=== PATIENT | female | born 1945 | race Caucasian/White ===

== ENCOUNTER → 2017-09-07 10:49 | Outpatient (CLI) | payer MEDICARE, BC, SELFPAY ==
--- NOTE | 2017-09-07 10:53 | MM_ITS ---
MM Dig screening mamm BI w/CAD CAD Screening COMPARISON: Digital mammograms 08/09/2016 and additional views right breast 08/30/2016 INDICATION: There is a history of breast cancer patient's mother diagnosed in her 50s and in 4 maternal aunts diagnosed in her 40s and 50s TECHNIQUE: Standard CC and MLO images were obtained. R2 CAD reviewed. FINDINGS: The breasts are composed primarily of fat with minimal scattered fibroglandular densities throughout each breast. Stable asymmetric density upper-outer quadrant right breast. There is arterial calcification in each breast. There is no suspicious lesion and there are no suspicious microcalcifications. IMPRESSION: Mild to moderate breast density with suspicious lesion seen recommend yearly follow-up BI-RADS Category: 2 Benign Finding(s) RECOMMENDED FOLLOW-UP: 1YR - 1 YEAR FOLLOW-UP (A letter has been sent to the patient regarding results of the study.)
== END ==
PROVIDERS: Family Provider Internal Medicine; PCP Obstetrics & Gynecology; Visit Provider Obstetrics & Gynecology
DX: Z12.31 Encounter for screening mammogram for malignant neoplasm of breast (principal)
CPT/HCPCS: 77067

== ENCOUNTER → 2018-09-12 09:43 | Outpatient (CLI) | payer MEDICARE, BC, SELFPAY ==
--- NOTE | 2018-09-12 09:47 | MM_ITS ---
MM Dig screening mamm BI w/CAD CAD Screening COMPARISON: Digital mammograms with CAD 09/07/2017 and 08/09/2016 INDICATION: There is a history of breast cancer patient's mother diagnosed in her 50s and 4 maternal aunts diagnosed in her 40s and 50s TECHNIQUE: Standard CC and MLO images were obtained. R2 CAD reviewed. FINDINGS: Scattered fibroglandular densities are seen throughout both breasts. There is minimal arterial calcination in each breast. There is no suspicious lesion in either breast and no suspicious microcalcifications. IMPRESSION: Stable exam no suspicious lesion seen BI-RADS Category: 2 Benign Finding(s) RECOMMENDED FOLLOW-UP: 1YR - 1 YEAR FOLLOW-UP (A letter has been sent to the patient regarding results of the study.)
== END ==
PROVIDERS: PCP Internal Medicine; Visit Provider Obstetrics & Gynecology
DX: Z12.31 Encounter for screening mammogram for malignant neoplasm of breast (principal)
CPT/HCPCS: 77067

== ENCOUNTER → 2018-10-22 11:25 | Outpatient (POV) | payer MEDICARE, BC, SELFPAY | PROVIDERS: Visit Provider Dermatology | DX: Z00.00 Encounter for general adult medical examination without abnormal findings (principal) ==

== ENCOUNTER → 2019-09-15 10:58 | Outpatient (CLI) | payer MEDICARE, BC, SELFPAY ==
--- NOTE | 2019-09-15 10:58 | MM_ITS ---
PROCEDURE: MM DIG SCREENING MAMM BI W/CAD CLINICAL INDICATION: screening There is no current history should available but previous studies show history of breast cancer patient's mother diagnosed in her 50s and 4 paternal aunts diagnosed in her 40s and 50s COMPARISON: [id number] DIG MAMM-DX UNI A/VW-RT W/CAD from 08/30/2016 [facility] MM Dig screening mamm BI w/CAD from 09/07/2017 [facility] MM Dig screening mamm BI w/CAD from 09/12/2018 TECHNIQUE: Standard CC and MLO images and 3D Tomosynthesis was obtained. R2 CAD reviewed. FINDINGS: Mild to moderate scattered fibroglandular densities are seen throughout both breasts. There is arterial calcification in each breast as noted previously. Lázaro images were review showing no persistent or suspicious abnormality in either breast. There are no suspicious microcalcifications. IMPRESSION: Fibrofatty parenchyma with no suspicious lesions seen BI-RAD Category: 2 Benign Finding(s) FOLLOW-UP: 1YR 1 Year Follow-up (A letter has been sent to the patient regarding results of the study.) Dictated by: Dr. Alex Manning MD 09/24/2019 14:[address] Alex Manning MD in [place] 09/24/2019 14:28
== END ==
PROVIDERS: PCP Internal Medicine; Visit Provider Obstetrics & Gynecology
DX: Z12.31 Encounter for screening mammogram for malignant neoplasm of breast (principal)
CPT/HCPCS: 77063; 77067

== ENCOUNTER → 2020-05-31 09:25 | Outpatient (CLI) | payer MEDICARE, BC, SELFPAY ==
[2020-05-31 11:02] LABS: Coronavirus 19 IgG Antibody Negative (Negative); Coronavirus 19 IgM Antibody Negative (Negative)
== END ==
PROVIDERS: Visit Provider Ophthalmology
DX: Z01.89 Encounter for other specified special examinations (principal); H26.9 Unspecified cataract
CPT/HCPCS: 36415; 86328

== ENCOUNTER 2020-06-01 09:59 | Day surgery (SDC) | payer MEDICARE, BC, SELFPAY ==
[2020-06-01 10:38] VITALS: BP 158/61; PULSE 47; RESP 18; TEMP 36.2; O2SAT 98; BMI 23.8
[2020-06-01 11:52] VITALS: BP 182/77; PULSE 44; RESP 16; O2SAT 100
[2020-06-01 11:57] VITALS: BP 184/72; PULSE 45; RESP 16; O2SAT 100
[2020-06-01 12:02] VITALS: BP 155/65; PULSE 45; RESP 16; O2SAT 100
[2020-06-01 12:07] VITALS: BP 153/68; PULSE 45; RESP 16; O2SAT 100
[2020-06-01 12:35] VITALS: BP 182/77; PULSE 49; RESP 18; TEMP 36.2; O2SAT 97
== END 2020-06-01 12:35 | disposition home or self-care (01) ==
LOC: OR 10:03
PROVIDERS: PCP Nurse Practitioner; Visit Provider Ophthalmology
DX: H25.813 Combined forms of age-related cataract, bilateral (principal); H53.8 Other visual disturbances; H02.839 Dermatochalasis of unspecified eye, unspecified eyelid; H91.90 Unspecified hearing loss, unspecified ear; Z79.82 Long term (current) use of aspirin; Z79.899 Other long term (current) drug therapy; Z88.2 Allergy status to sulfonamides
CPT/HCPCS: 66984; V2632

== ENCOUNTER → 2020-06-14 10:48 | Outpatient (CLI) | payer MEDICARE, BC, SELFPAY ==
[2020-06-14 13:23] LABS: Coronavirus 19 IgG Antibody Negative (Negative); Coronavirus 19 IgM Antibody Negative (Negative)
== END ==
PROVIDERS: Visit Provider Ophthalmology
DX: Z01.818 Encounter for other preprocedural examination (principal); H26.9 Unspecified cataract
CPT/HCPCS: 36415; 86328

== ENCOUNTER 2020-06-15 08:23 | Day surgery (SDC) | payer MEDICARE, BC, SELFPAY ==
[2020-06-08 13:16] VITALS: BMI 21.9
[2020-06-15 09:16] VITALS: BP 180/82; PULSE 60; RESP 18; TEMP 36.2; O2SAT 98
[2020-06-15 10:36] VITALS: BP 185/76; PULSE 53; RESP 18; O2SAT 100
[2020-06-15 10:41] VITALS: BP 151/65; PULSE 45; RESP 18; O2SAT 100
[2020-06-15 10:46] VITALS: BP 138/63; PULSE 46; RESP 16; O2SAT 98
[2020-06-15 10:51] VITALS: BP 165/55; PULSE 48; RESP 16; O2SAT 98
[2020-06-15 10:54] VITALS: BP 161/82; PULSE 51; RESP 18; TEMP 36.4; O2SAT 99
== END 2020-06-15 11:13 | disposition home or self-care (01) ==
LOC: OR 08:25
PROVIDERS: PCP Nurse Practitioner; Visit Provider Ophthalmology
DX: H25.813 Combined forms of age-related cataract, bilateral (principal); H02.839 Dermatochalasis of unspecified eye, unspecified eyelid; H57.09 Other anomalies of pupillary function; Z79.899 Other long term (current) drug therapy; Z79.82 Long term (current) use of aspirin; Z91.041 Radiographic dye allergy status; Z91.040 Latex allergy status
CPT/HCPCS: 66982; V2632

== ENCOUNTER 2020-06-17 19:26 | Observation (INO) | payer MEDICARE, BC, SELFPAY ==
[2020-06-17 19:28] VITALS: BP 170/70; PULSE 53; RESP 18; TEMP 37.1; O2SAT 100; BMI 21.9
[2020-06-17 19:58] LABS: Microscopic, Urine URINE MICROSCOPIC (MICROSCOPIC)
[2020-06-17 19:59] LABS: Appearance,Urine CLEAR (Clear); Bilirubin,Urine Negative (Negative); Blood, Urine Negative (Negative); Color,Urine YELLOW (Yellow); Glucose,Urine (UA) Negative (Negative); Ketones,Urine Negative (Negative); Leukocyte Esterase,Urine 2+ (Negative); Nitrate,Urine Negative (Negative); Protein,Urine Negative (Negative); Urobilinogen,Urine 0.2 EU/dl (0.2)
--- NOTE | 2020-06-17 20:16 | HMH.EDUROGF ---
ED Disposition Clinical Impression: Acute delirium, Renal insufficiency Urinary tract infection Qualifiers: Urinary tract infection type: site unspecified Hematuria presence: without hematuria Qualified Code(s): N39.0 - Urinary tract infection, site not specified Dementia Qualifiers: Dementia type: unspecified type Dementia behavioral disturbance: without behavioral disturbance Qualified Code(s): F03.90 - Unspecified dementia without behavioral disturbance Disposition: Admitted as Observation Condition on Discharge: Good Referrals: Sam Kay [Primary Care Provider] - - Critical Care Critical Care Time: No Attestation: On 06/17/20, the high probability of a clinically significant, sudden or life threatening deterioration of the following system(s) required my full and direct attention, intervention and personal management. The time I documented below is in addition to time spent performing reported procedures but includes the following listed in this critical care notation. Medical Decision Making - Medical Records Medical records reviewed: Yes: I reviewed the patient's medical records. - Bharathi Inquiry Pt receiving controlled substance: No Vital Signs: 06/17/20 19:28 06/17/20 20:19 Temperature 98.7 F Temperature Source Oral Pulse Rate [Right Radial] 53 L 56 L Respiratory Rate 18 18 Blood Pressure [Left Arm] 170/70 H 141/69 H Blood Pressure Mean [Left Arm] 103 93 Blood Pressure Source [Left Arm] Automatic Cuff Automatic Cuff Blood Pressure Position [Left Arm] Sitting Sitting 02 Sat by Pulse Oximetry 100 98 Oxygen Delivery Method Room Air Room Air - Lab Data Lab results reviewed: Yes: I reviewed the patient's lab results. Lab Results 06/17/20 19:34: Urine Color Yellow, Urine Appearance Clear, Urine pH 6.0, Ur Specific [place] 1.020, Urine Protein Negative, Urine Glucose (UA) Negative, Urine Ketones Negative, Urine Blood Negative, Urine Nitrate Negative, Urine Bilirubin Negative, Urine Urobilinogen 0.2, Ur Leukocyte Esterase 2+ A, Urine RBC 3-5, Urine WBC 10-20, Ur Squamous Epith Cells 10-20, Urine Bacteria 2+, Urine Mucus 3+ 06/17/20 20:10: WBC 8.4, RBC 4.64, Hgb 13.9, Hct 43.0, MCV 92.7, MCH 29.9, MCHC 32.3, RDW 14.1, Plt Count 187, MPV 9.8, Neut % (Auto) 57.7, Lymph % (Auto) 33.5, [place] % (Auto) 6.3, Eos % (Auto) 1.9, Baso % (Auto) 0.5, Neut # (Auto) 4.9, Lymph # (Auto) 2.8, [place] # (Auto) 0.5, Eos # (Auto) 0.2, Baso # (Auto) 0.0 06/17/20 20:10: Sodium 143, Carbon Dioxide 33 H, BUN 14, Creatinine 1.20 H, Estimated Creat Clear 35, Estimated GFR 44 L, Est GFR ( Amer) 53 L, Glucose 90, Calcium 9.3, Total Bilirubin 0.6, AST 26, ALT 7 L, Alkaline Phosphatase 111, Total Protein 6.9, Albumin 4.1, Globulin 2.8, Albumin/Globulin Ratio 1.5 Result diagrams: 06/17/20 20:10 06/17/20 20:10 Orders (Tests/Meds): ED MEDICATIONS Generic Name Dose Route Start Last Admin Trade Name Freq PRN Reason Stop Dose Admin Sodium Chloride 1,000 mls @ 999 mls/hr 06/17/20 20:15 06/17/20 20:18 Sod Chlor 0.9% 1000ml Bag IV 06/17/20 21:15 999 mls/hr .Q1H1M HEMALATHA Administration Ceftriaxone Sodium 1 gm/ 50 mls @ 100 mls/hr 06/17/20 20:45 06/17/20 20:49 Sodium Chloride IV 07/01/20 20:44 100 mls/hr Q24H HEMALATHA Administration Protocol ORDERS Category Date Time Status Comprehensive Metabolic Panel Stat Lab 06/17/20 20:10 Results Covid-19 IgG/IgM ([facility]) Stat Lab 06/17/20 20:10 Received Urine Culture Stat Micro 06/17/20 19:34 Received Female Urogenital HPI - General Chief complaint: Urogenital-Female Stated complaint: confusion, pre dementia patient Time Seen by Provider: 06/17/20 20:00 Mode of Arrival: Wheelchair Source of Information: Patient, Relative, Medical Record Limitations: No Limitations Description of Symptoms (Recalled from ER Triage Doc. by RN): Son of pt provided hx. He states pt has been talking out of her mind' and stumbling around since this afternoon. He stat
[2020-06-17 20:19] VITALS: BP 141/69; PULSE 56; RESP 18; O2SAT 98
[2020-06-17 20:27] LABS: Basophils % 0.5 % (0.1-2.0); Eosinophils # 0.2 K/mm3 (0.0-0.4); Eosinophils % 1.9 % (0.1-12.0); Hemoglobin 13.9 g/dL (12.2-16.2); Lymphocytes # 2.8 K/mm3 (0.7-4.5); Lymphocytes % 33.5 % (10-50); Mean Corpuscular HGB Conc 32.3 g/dL (31.8-35.4); Mean Corpuscular Hemoglobin 29.9 pg (27.0-31.2); Mean Corpuscular Volume 92.7 fl (81-99); Mean Platelet Volume 9.8 fl (7.4-10.4); Monocytes # 0.5 K/mm3 (0.1-1.0); Monocytes % 6.3 % (1.7-9.3); Neutrophils # 4.9 K/mm3 (1.8-7.8); Neutrophils % 57.7 % (37.0-80.0); Platelet Count 187 K/mm3 (142-424); Red Blood Count 4.64 M/mm3 (4.20-5.40); Red Cell Distribution Width 14.1 % (11.5-17.5); White Blood Count 8.4 K/mm3 (4.8-10.8)
[2020-06-17 20:30] LABS: Sodium 143 mmol/L (136-145)
[2020-06-17 20:32] LABS: Alanine Aminotransferase 7 U/L (12-78); Aspartate Amino Transferase 26 U/L (14-36); Blood Urea Nitrogen 14 mg/dl (7-17); Creatinine Clearance Estimated 35 mL/min (50-200); Estimated Glomerular Filt Rate 44 ml/min (>60); GFR (African American) 53 ML/MIN (>60)
[2020-06-17 20:33] LABS: Albumin Level 4.1 g/dl (3.5-5.0); Albumin/Globulin Ratio 1.5 (1.1-1.8); Alkaline Phosphatase 111 U/L (38-126); Bilirubin,Total 0.6 mg/dl (0.2-1.3); Calcium 9.3 mg/dl (8.4-10.2); Carbon Dioxide 33 mmol/L (22.0-30.0); Globulin 2.8 g/dL (1.3-3.2); Glucose 90 mg/dl (74-100); Total Protein,Serum 6.9 g/dl (6.3-8.2)
[2020-06-17 20:35] LABS: Bacteria,Urine 2+ /lpf; Mucus,Urine 3+ /lpf
[2020-06-17 21:39] LABS: Coronavirus 19 IgG Antibody Negative (Negative); Coronavirus 19 IgM Antibody Negative (Negative)
[2020-06-17 21:42] LABS: Anion Gap 7.3 mEq/L (5-15); Chloride 107 mmol/L (98-107); Potassium 4.3 mmoL/L (3.5-5.1)
[2020-06-17 22:00] VITALS: BP 180/66; PULSE 52; RESP 18; TEMP 36.9; O2SAT 99
[2020-06-17 22:08] VITALS: BP 159/69; PULSE 45; RESP 16; TEMP 36.5; O2SAT 99; BMI 24.0
--- NOTE | 2020-06-17 22:08 | PC.NURSE ---
patient up to floor via wheelchair per RN.
[2020-06-17 22:14] LABS: T4 (Thyroxine) 7.8 ug/dl (5.53-11.0)
--- NOTE | 2020-06-18 03:09 | PC.NURSE ---
Pt able to state name,birthday, and year. lungs CTA. pt denies any pain or SOA. pt ambulates to BR x1. bed alarm activated. pt has rested quietly this shift
[2020-06-18 03:43] VITALS: BP 151/71; PULSE 47; RESP 14; TEMP 36.4; O2SAT 96
[2020-06-18 05:00] VITALS: BMI 24.0
[2020-06-18 07:15] LABS: Basophils % 0.4 % (0.1-2.0); Eosinophils # 0.1 K/mm3 (0.0-0.4); Hematocrit 38.5 % (37.0-47.0); Lymphocytes # 2.1 K/mm3 (0.7-4.5); Lymphocytes % 31.6 % (10-50); Mean Corpuscular HGB Conc 31.8 g/dL (31.8-35.4); Mean Corpuscular Hemoglobin 29.5 pg (27.0-31.2); Mean Corpuscular Volume 92.6 fl (81-99); Mean Platelet Volume 9.8 fl (7.4-10.4); Monocytes # 0.4 K/mm3 (0.1-1.0); Monocytes % 6.4 % (1.7-9.3); Neutrophils % 59.6 % (37.0-80.0); Platelet Count 156 K/mm3 (142-424); Red Blood Count 4.16 M/mm3 (4.20-5.40); Red Cell Distribution Width 14.2 % (11.5-17.5); White Blood Count 6.7 K/mm3 (4.8-10.8)
[2020-06-18 07:19] LABS: Chloride 108 mmol/L (98-107)
[2020-06-18 07:20] LABS: Sodium 142 mmol/L (136-145)
[2020-06-18 07:23] LABS: Blood Urea Nitrogen 11 mg/dl (7-17); Calcium 8.6 mg/dl (8.4-10.2); Carbon Dioxide 28 mmol/L (22.0-30.0); Creatinine Clearance Estimated 46 mL/min (50-200); Estimated Glomerular Filt Rate 54 ml/min (>60); GFR (African American) 65 ML/MIN (>60); Glucose 80 mg/dl (74-100)
--- NOTE | 2020-06-18 07:48 | P.CONPHA_ITS ---
[facility] Pharmacy VTE Monitoring - Patient Demographics Admission date: 06/18/20 Report Date: 06/18/20 Time: 07:48 Allergies/Adverse Reactions: Patient Allergies latex Allergy (Intermediate, Verified 06/17/20 22:23) I-RASH Iodinated Contrast Media Allergy (Unknown, Verified 06/17/20 22:23) Unknown allergy reaction Height: 1.57 m Weight: 59.33 kg Patient Problems: Current Active Problems Urinary tract infection (Acute) Acute delirium (Acute) Renal insufficiency (Acute) Dementia (Acute) - VTE Risk Labs: VTE Related Lab Results Hgb 13.9 g/dL (12.2-16.2) 06/17/20 20:10 Hct 38.5 % (37.0-47.0) 06/18/20 06:44 Plt Count 156 K/mm3 (142-424) 06/18/20 06:44 BUN 14 mg/dl (7-17) 06/17/20 20:10 Creatinine 1.20 mg/dl (0.52-1.04) H 06/17/20 20:10 Estimated Creat Clear 35 mL/min (50-200) 06/17/20 20:10 Clinical Trial Participant: No - Prophylaxis VTE Prophylaxis Ordered?: Yes Types of VTE Prophylaxis: TEDS Knee High
[2020-06-18 07:56] LABS: Hemoglobin 12.4 g/dL (12.2-16.2)
[2020-06-18 08:00] VITALS: BP 140/71; PULSE 56; RESP 16; TEMP 36.6; O2SAT 100
--- NOTE | 2020-06-18 09:42 | HMH.HP ---
*Admission Date: 06/18/20 [facility] History Medical History: Reports:: Hypertension Denies:: Cancer, Diabetes Mellitus Type 1, Diabetes Mellitus Type 2, Internal Pacemaker, MRSA, Seizures *Have you ever received a pneumonia vaccine?: Yes (within last 5 years) *Have you received a flu vaccine this season?: No Other Medical History: Reports: Arthritis, Cataracts (both eyes done with last month), Other Other Surgeries: Yes: Appendectomy, Hysterectomy-Total. No: Pacemaker Amputation: No Fractures: No - *Social History Smoking Status: Never smoker Alcohol Intake: never Substance Use Type: denies use *Occupational Status:: retired Housing: house Household Members: none *Travel in the last 8 weeks: None Family Hx:: No significant family history Review of Systems - *Neurologic Reports confusion, Reports weakness, Denies localized weakness, Denies headache(s) Meds Home Medications Medication Instructions Recorded Confirmed Type atorvastatin 20 mg tablet 20 mg PO DAILY 05/09/18 06/17/20 History celecoxib 200 mg capsule 200 mg PO DAILY 05/09/18 06/17/20 History dicyclomine 10 mg capsule 10 mg PO QID 05/09/18 06/17/20 History enalapril maleate 10 mg tablet 10 mg PO DAILY 05/09/18 06/17/20 History lorazepam 0.5 mg tablet 0.5 mg PO HS 05/09/18 06/17/20 History aspirin 81 mg tablet,delayed 81 mg PO DAILY 08/06/18 06/17/20 History release fexofenadine 180 mg tablet 180 mg PO DAILY PRN 08/06/18 06/17/20 History naproxen sodium 220 mg tablet 220 mg PO BID PRN 08/06/18 06/17/20 History pentosan polysulfate sodium 100 mg 100 mg PO TID 08/06/18 06/17/20 History capsule Memantine HCl [Memantine 10mg 10 mg PO BID 06/17/20 06/17/20 History Tablet] nadoloL [Nadolol] 40 mg PO DAILY 06/17/20 06/17/20 History Donepezil HCl [Aricept 10mg 10 mg PO HS 06/18/20 06/18/20 History tablet] Ergocalciferol (Vitamin D2) 50,000 unit PO WEEKLY 06/18/20 06/18/20 History [Drisdol 50,000 units (1.25mg) capsule] Fluoxetine HCl [Prozac 10mg 10 mg PO DAILY 06/18/20 06/18/20 History Capsule] Allergies Allergy/AdvReac Type Severity Reaction Status Date / Time latex Allergy Intermediate I-RASH Verified 06/17/20 22:23 Iodinated Contrast Media Allergy Unknown Unknown Verified 06/17/20 22:23 allergy reaction Exam Vital signs and Labs for Last 24 Hours: Temp Pulse Resp BP Pulse Ox 97.8 F 56 L 16 140/71 100 06/18/20 08:00 06/18/20 08:00 06/18/20 08:00 06/18/20 08:00 06/18/20 08:00 Laboratory Results - last 24 hr 06/17/20 19:34: Urine Color Yellow, Urine Appearance Clear, Urine pH 6.0, Ur Specific [place] 1.020, Urine Protein Negative, Urine Glucose (UA) Negative, Urine Ketones Negative, Urine Blood Negative, Urine Nitrate Negative, Urine Bilirubin Negative, Urine Urobilinogen 0.2, Ur Leukocyte Esterase 2+ A, Urine RBC 3-5, Urine WBC 10-20, Ur Squamous Epith Cells 10-20, Urine Bacteria 2+, Urine Mucus 3+ 06/17/20 20:10: WBC 8.4, RBC 4.64, Hgb 13.9, Hct 43.0, MCV 92.7, MCH 29.9, MCHC 32.3, RDW 14.1, Plt Count 187, MPV 9.8, Neut % (Auto) 57.7, Lymph % (Auto) 33.5, [place] % (Auto) 6.3, Eos % (Auto) 1.9, Baso % (Auto) 0.5, Neut # (Auto) 4.9, Lymph # (Auto) 2.8, [place] # (Auto) 0.5, Eos # (Auto) 0.2, Baso # (Auto) 0.0 06/17/20 20:10: Sodium 143, Potassium 4.3, Chloride 107, Carbon Dioxide 33 H, Anion Gap 7.3, BUN 14, Creatinine 1.20 H, Estimated Creat Clear 35, Estimated GFR 44 L, Est GFR ( Amer) 53 L, Glucose 90, Calcium 9.3, Total Bilirubin 0.6, AST 26, ALT 7 L, Alkaline Phosphatase 111, Total Protein 6.9, Albumin 4.1, Globulin 2.8, Albumin/Globulin Ratio 1.5 06/17/20 20:10: SARS-CoV-2 IgG Ab (Rapid) Negative, SARS-CoV-2 IgM Ab (Rapid) Negative 06/17/20 20:10: TSH 3.70, Thyroxine (T4) 7.8 06/18/20 06:44: WBC 6.7, RBC 4.16 L, Hgb 12.4 D, Hct 38.5, MCV 92.6, MCH 29.5, MCHC 31.8, RDW 14.2, Plt Count 156, MPV 9.8, Neut % (Auto) 59.6, Lymph % (Auto) 31.6, [place] % (Auto) 6.4, Eos % (Auto) 2.0, Baso % (Auto) 0.4, Neut #
--- NOTE | 2020-06-18 10:09 | HMH.OTEV ---
OT Inpatient Evaluation Rehab OT IP Evaluation Start: 06/17/20 22:32 Freq: ONCE Status: Complete Protocol: Document 06/18/20 09:57 RADHA (Rec: 06/18/20 10:09 RADHA [id number]) Rehab OT IP Assessment Subjective History 75 year old female admitted on 06/17/20 to ED at [facility] for acute delirium and renal insufficiency. Patient poor historian and unable to provide accurate and consistent PLOF hx with ADLs and fx'l mobility. Per counter caser, Patient lived alone and independent with ADLs and fx'l mobility. Family lives close by and checks on her multiple times a day. Subjective I live in [facility] with my son close by. Objective Patient Orientation Person Upper Extremity Gross ROM WNL Bed Mobility bed mobility - supine/sit,bed mobility - rolling Assist Level Independent Transfer Training Sit/Stand Transfer,Sit/Stand/ Step Transfer Assist Level Contact Guard/Hand Hold Lower Body Dressing Ability Independent Rehab OT IP prob,goals,plan Problems Date of Evaluation: 06/18/20 OT IP Problems Transfers,Balance,Safety Rehab Potential Rehab Potential Good Equipment Needs Assistive Devices Rolling / Wheeled Walker Plan OT intervention Plan Transfers,Balance,Safety, Therapeutic Exercise OT Plan Frequency Daily Duration LOS Discharge Goals Sit to Stand Chair Transfer Ability Supervision/Stand by Chair Transfer Ability Supervision/Stand by Chair Transfer Technique Stand Step Pivot Chair Transfer Assistive Devices Rolling Walker Discharge Plan OT Discharge Plan Recommend HH if return home with family to assist. Eval Complexity Eval Charge Codes 96963 - Low Complexity G Codes G -code Required No PHYSICIAN CERTIFICATION: I certify the specified therapy services for Adrienne Low are required, authorized, and reviewed every 30 days.
--- NOTE | 2020-06-18 11:19 | HMH.PTEV ---
Physical Therapy Evaluation Rehab PT IP Evaluation Start: 06/17/20 22:32 Freq: ONCE Status: Active Protocol: Document 06/18/20 11:17 PHORVICENTE (Rec: 06/18/20 11:19 PHORNE [id number]) Subjective/History History History 75 yowf adm to [facility] with possible UTI and AMS. SHe reports she lives alone independent with all ADLs and mobility at baseline. Subjective Subjective Pt with no c/o this am. Rehab PT IP Eval Objective Appearance Patient Behavior Appropriate Patient Orientation Person,Place,Time Difficulty following instructions none Speech Pattern Clear Ambulation Patient Able to Ambulate Yes Ambulation Observation IP General Gait Pattern Observation No Deviations/Normal Ambulation Distance (feet) 50 Ambulation Assistive Device None Ambulation Ability Independent Balance Ability to Arise Able, w/o using arms Sitting Balance Steady, safe Standing Balance Narrow stance w/o support Dynamic Sitting Balance Ability Normal Dynamic Standing Balance Ability Good Transfers Bed Transfer Ability Independent Chair Transfer Ability Independent Sit to Stand Bed Transfer Ability Independent Sit to Stand Chair Transfer Ability Independent ROM All Extremities PT ROM Status WFL MMT All Extremities PT MMT WFL Rehab PT IP prob,goals,plan Problems Date of Evaluation: 06/18/20 Discharge Plan PT Discharge Plan Pt appears to be at baseline for all mobility at this time and is appropriate to return home once medically stable. Home Health therapy recommended. G -code Required No Eval Complexity Eval Charge Codes 41981 - Moderate Complexity PHYSICIAN CERTIFICATION: I certify the specified therapy services for Adrienne Low are required, authorized, and reviewed every 30 days.
--- NOTE | 2020-06-18 12:18 | HMH.HPDC ---
General - General Admission date:: 06/17/20 Discharge date: 06/18/20 *Admission Date: 06/18/20 *Chief complaint: uti *History of present illness: 75 yr old female presented to ed with Son providing hx to ed. He states pt has been talking out of her mind' and stumbling around since this afternoon. He states he thinks she has a UTI . Pt denies N/V/D, cough, pain, SOA. Son reported to ed pt with reported dementia with increased confusion today - sl fever at home - no trauma or chest pain. Pt admitted for UTI. [facility] History I have reviewed the patient's past medical history: Yes Medical History: Reports:: Hypertension Denies:: Cancer, Diabetes Mellitus Type 1, Diabetes Mellitus Type 2, Internal Pacemaker, MRSA, Seizures *Have you ever received a pneumonia vaccine?: Yes (within last 5 years) *Have you received a flu vaccine this season?: No Other Medical History: Reports: Arthritis, Cataracts (both eyes done with last month), Other Other Surgeries: Yes: Appendectomy, Hysterectomy-Total. No: Pacemaker Amputation: No Fractures: No - *Social History Smoking Status: Never smoker Alcohol Intake: never Substance Use Type: denies use *Occupational Status:: retired Housing: house Household Members: none *Travel in the last 8 weeks: None Family Hx:: No significant family history Review of Systems - Review of Systems Review of systems:: pertinent systems reviewed and negative unless documented below - Constitutional Reports fatigue - Eyes Denies change in vision - ENT Denies sore throat - *Cardiovascular Denies chest pain at rest - *Respiratory Denies chest congestion - *Gastrointestinal Denies belching, Denies nausea, Denies vomiting - *Genitourinary Reports urinary urgency - *Musculoskeletal Denies joint pain - Integumentary/Breasts Denies bleeding lesions, Denies rash - *Neurologic Reports confusion, Reports weakness, Denies localized weakness, Denies headache(s) - Psychiatric Denies lack of enjoyment - Endocrine Denies excessive sweating - Hematologic/Lymphatic Denies easy bruising - Allergic/Immunologic Denies GI upset with certain foods Exam Vital signs and Labs for Last 24 Hours: Temp Pulse Resp BP Pulse Ox 97.8 F 56 L 16 140/71 100 06/18/20 08:00 06/18/20 08:00 06/18/20 08:00 06/18/20 08:00 06/18/20 08:00 Laboratory Results - last 24 hr 06/17/20 19:34: Urine Color Yellow, Urine Appearance Clear, Urine pH 6.0, Ur Specific [place] 1.020, Urine Protein Negative, Urine Glucose (UA) Negative, Urine Ketones Negative, Urine Blood Negative, Urine Nitrate Negative, Urine Bilirubin Negative, Urine Urobilinogen 0.2, Ur Leukocyte Esterase 2+ A, Urine RBC 3-5, Urine WBC 10-20, Ur Squamous Epith Cells 10-20, Urine Bacteria 2+, Urine Mucus 3+ 06/17/20 20:10: WBC 8.4, RBC 4.64, Hgb 13.9, Hct 43.0, MCV 92.7, MCH 29.9, MCHC 32.3, RDW 14.1, Plt Count 187, MPV 9.8, Neut % (Auto) 57.7, Lymph % (Auto) 33.5, [place] % (Auto) 6.3, Eos % (Auto) 1.9, Baso % (Auto) 0.5, Neut # (Auto) 4.9, Lymph # (Auto) 2.8, [place] # (Auto) 0.5, Eos # (Auto) 0.2, Baso # (Auto) 0.0 06/17/20 20:10: Sodium 143, Potassium 4.3, Chloride 107, Carbon Dioxide 33 H, Anion Gap 7.3, BUN 14, Creatinine 1.20 H, Estimated Creat Clear 35, Estimated GFR 44 L, Est GFR ( Amer) 53 L, Glucose 90, Calcium 9.3, Total Bilirubin 0.6, AST 26, ALT 7 L, Alkaline Phosphatase 111, Total Protein 6.9, Albumin 4.1, Globulin 2.8, Albumin/Globulin Ratio 1.5 06/17/20 20:10: SARS-CoV-2 IgG Ab (Rapid) Negative, SARS-CoV-2 IgM Ab (Rapid) Negative 06/17/20 20:10: TSH 3.70, Thyroxine (T4) 7.8 06/18/20 06:44: WBC 6.7, RBC 4.16 L, Hgb 12.4 D, Hct 38.5, MCV 92.6, MCH 29.5, MCHC 31.8, RDW 14.2, Plt Count 156, MPV 9.8, Neut % (Auto) 59.6, Lymph % (Auto) 31.6, [place] % (Auto) 6.4, Eos % (Auto) 2.0, Baso % (Auto) 0.4, Neut # (Auto) 4.0, Lymph # (Auto) 2.1, [place] # (Auto) 0.4, Eos # (Auto) 0.1, Baso # (Auto) 0.0 06/18/20 06:44: Sodium 142, Potassium 4.0, Chloride 10
--- NOTE | 2020-06-18 12:47 | PC.NURSE ---
THIS RN RECEIVED A PHONE CALL FROM CHLOÉ LOZANO, PATIENT'S SON. MR. LOZANO IS CONCERNED ABOUT HIS MOTHER BEING DISCHARGED. THIS RN PHONED DR. RUIZ'S OFFICE AND PROVIDED MR. LOZANO PHONE NUMBER TO MUKUL HUFFMAN AND STATED THAT HE WOULD LIKE TO SPEAK WITH AN MD. NO OTHER CONCERNS AT THIS TIME.
--- NOTE | 2020-06-18 12:52 | SW/DCPLANNER ---
Addendum entered by Lora Plata 06/18/20 13:46: I have informed Carlos with [facility] that patient will not discharge till after urine cultures are back hopefully tomorrow. Carlos has asked that any additional information be faxed on Sunday. CM will follow up with [facility]. Carlos has stated that start of care should be Sunday pending follow up from CM. Addendum entered by Lora Plata 06/18/20 12:59: Home health referral has been faxed [facility] . Original Note: I have spoke with this patients son (Zane) regarding patients discharge plans. Zane stated that patient lives at home alone and does well at home alone. Zane stated that family checks on patient 5-6 times a day everyday. Zane lives within minutes from patient. PT did evaluate this patient and stated that patient was at baseline and independent. Zane has stated that he is fine with this patient discharging home but has requested home health services. Patient will discharge home today. I will fax patient information and order to home health agency.
--- NOTE | 2020-06-18 13:09 | PC.NURSE ---
SON IS ON FLOOR, STATED THAT HE IS OKAY TO TAKE PATIENT HOME. NO OTHER CONCERNS AT THIS TIME.
--- NOTE | 2020-06-18 13:09 | HMH.ACPN2 ---
Internal Medicine - PN: Subj *Date: 06/18/20 *Time: 13:10 Interval history: will wait on dc after urine cx results Exam Vital signs and Labs for Last 24 Hours: Temp Pulse Resp BP Pulse Ox 97.8 F 56 L 16 140/71 100 06/18/20 08:00 06/18/20 08:00 06/18/20 08:00 06/18/20 08:00 06/18/20 08:00 Laboratory Results - last 24 hr 06/17/20 19:34: Urine Color Yellow, Urine Appearance Clear, Urine pH 6.0, Ur Specific [place] 1.020, Urine Protein Negative, Urine Glucose (UA) Negative, Urine Ketones Negative, Urine Blood Negative, Urine Nitrate Negative, Urine Bilirubin Negative, Urine Urobilinogen 0.2, Ur Leukocyte Esterase 2+ A, Urine RBC 3-5, Urine WBC 10-20, Ur Squamous Epith Cells 10-20, Urine Bacteria 2+, Urine Mucus 3+ 06/17/20 20:10: WBC 8.4, RBC 4.64, Hgb 13.9, Hct 43.0, MCV 92.7, MCH 29.9, MCHC 32.3, RDW 14.1, Plt Count 187, MPV 9.8, Neut % (Auto) 57.7, Lymph % (Auto) 33.5, [place] % (Auto) 6.3, Eos % (Auto) 1.9, Baso % (Auto) 0.5, Neut # (Auto) 4.9, Lymph # (Auto) 2.8, [place] # (Auto) 0.5, Eos # (Auto) 0.2, Baso # (Auto) 0.0 06/17/20 20:10: Sodium 143, Potassium 4.3, Chloride 107, Carbon Dioxide 33 H, Anion Gap 7.3, BUN 14, Creatinine 1.20 H, Estimated Creat Clear 35, Estimated GFR 44 L, Est GFR ( Amer) 53 L, Glucose 90, Calcium 9.3, Total Bilirubin 0.6, AST 26, ALT 7 L, Alkaline Phosphatase 111, Total Protein 6.9, Albumin 4.1, Globulin 2.8, Albumin/Globulin Ratio 1.5 06/17/20 20:10: SARS-CoV-2 IgG Ab (Rapid) Negative, SARS-CoV-2 IgM Ab (Rapid) Negative 06/17/20 20:10: TSH 3.70, Thyroxine (T4) 7.8 06/18/20 06:44: WBC 6.7, RBC 4.16 L, Hgb 12.4 D, Hct 38.5, MCV 92.6, MCH 29.5, MCHC 31.8, RDW 14.2, Plt Count 156, MPV 9.8, Neut % (Auto) 59.6, Lymph % (Auto) 31.6, [place] % (Auto) 6.4, Eos % (Auto) 2.0, Baso % (Auto) 0.4, Neut # (Auto) 4.0, Lymph # (Auto) 2.1, [place] # (Auto) 0.4, Eos # (Auto) 0.1, Baso # (Auto) 0.0 06/18/20 06:44: Sodium 142, Potassium 4.0, Chloride 108 H, Carbon Dioxide 28, Anion Gap 10.0, BUN 11, Creatinine 1.00, Estimated Creat Clear 46, Estimated GFR 54 L, Est GFR ( Amer) 65 D, Glucose 80, Calcium 8.6, Magnesium 2.0 I & O for Last 24 hours: Intake & Output 06/16/20 06/17/20 06/18/20 06/19/20 11:59 11:59 11:59 11:59 Intake Total 634 / 634 Output Total 400 / 400 Balance 234 / 234 Weight 130 lb 12.804 oz - Constitutional no acute distress - *Routine HEENT Exam Head: Present: normocephalic Eye: Present: PERRL ENT: Present: mucous membranes moist - *Routine Neck Exam Present: supple. Absent: lymphadenopathy - *Routine Respiratory Exam Present: CTA bilaterally - *Routine Cardiovascular Exam Present: RRR - *Routine Abdominal Exam Present: soft, normoactive bowel sounds. Absent: tenderness - *Routine Extremities Exam Absent: cyanosis, clubbing, edema - *Routine Skin Exam Present: warm. Absent: rash - *Routine Neurological Exam Present: alert alert to person and place - Routine Psychiatric Exam Present: normal affect Assessment and Plan (1) Acute delirium Status: Acute Category: Medical Code(s): R41.0 - Disorientation, unspecified (2) Dementia Status: Acute Qualifiers: Dementia type: unspecified type Dementia behavioral disturbance: without behavioral disturbance Qualified Code(s): F03.90 - Unspecified dementia without behavioral disturbance Category: Medical Code(s): F03.90 - Unspecified dementia without behavioral disturbance (3) Renal insufficiency Status: Acute Category: Medical Code(s): N28.9 - Disorder of kidney and ureter, unspecified (4) Urinary tract infection Status: Acute Qualifiers: Urinary tract infection type: site unspecified Hematuria presence: without hematuria Qualified Code(s): N39.0 - Urinary tract infection, site not specified Category: Medical Code(s): N39.0 - Urinary tract infection, site not specified - Assessment and plan all Dx Assessment and Plan for all problems:: round
--- NOTE | 2020-06-18 13:48 | PC.NURSE ---
THIS RN RECEIVED PHONE CALL FROM CARE MANAGEMENT, PATIENT IS NOT TO BE D/C 06/18/2020. DR. RUIZ AWAITS CULTURE RESULTS. PATIENT'S SON NOTIFIED. NO OTHER CONCERNS AT THIS TIME.
[2020-06-18 16:00] VITALS: BP 143/69; PULSE 52; RESP 16; TEMP 36.8; O2SAT 97
--- NOTE | 2020-06-18 19:08 | PC.NURSE ---
PATIENT ALERT TO SELF, LUNGS CLEAR, PULSES EQUAL. PATIENT HAS SHOWN INTERMITTENT CONFUSION THROUGHOUT THIS SHIFT. PATIENT HAS AMBULATED TO BATHROOM WITH STAND BY ASSIST, STEADY GAIT. PATIENT TOLERATED ALL MEALS. NO OTHER CONCERNS AT THIS TIME.
--- NOTE | 2020-06-18 19:15 | PC.NURSE ---
report given to óscar
[2020-06-18 19:56] VITALS: BP 125/64; PULSE 55; RESP 16; TEMP 36.9; O2SAT 97
[2020-06-18 19:59] VITALS: PULSE 52
--- NOTE | 2020-06-19 03:35 | PC.NURSE ---
pt alert to self. pt denies any pain SOA. lungs CTA. pt ambulates to bathroom with standby assistance. pt has rested quietly this shift bed alarm activated VSS
[2020-06-19 03:54] VITALS: BP 144/63; PULSE 55; RESP 17; TEMP 36.9; O2SAT 97
[2020-06-19 05:00] VITALS: BMI 23.9
[2020-06-19 06:53] LABS: Basophils % 0.4 % (0.1-2.0); Eosinophils # 0.2 K/mm3 (0.0-0.4); Eosinophils % 2.3 % (0.1-12.0); Lymphocytes % 28.9 % (10-50); Mean Corpuscular HGB Conc 32.5 g/dL (31.8-35.4); Mean Corpuscular Volume 92.3 fl (81-99); Monocytes # 0.4 K/mm3 (0.1-1.0); Monocytes % 6.3 % (1.7-9.3); Neutrophils # 4.2 K/mm3 (1.8-7.8); Neutrophils % 62.1 % (37.0-80.0); Platelet Count 175 K/mm3 (142-424); Red Blood Count 4.33 M/mm3 (4.20-5.40); Red Cell Distribution Width 14.2 % (11.5-17.5); White Blood Count 6.8 K/mm3 (4.8-10.8)
[2020-06-19 06:56] LABS: Chloride 107 mmol/L (98-107); Sodium 141 mmol/L (136-145)
[2020-06-19 06:59] LABS: Blood Urea Nitrogen 11 mg/dl (7-17); Carbon Dioxide 27 mmol/L (22.0-30.0); Creatinine Clearance Estimated 45 mL/min (50-200); Estimated Glomerular Filt Rate 54 ml/min (>60); GFR (African American) 65 ML/MIN (>60)
[2020-06-19 07:00] LABS: Calcium 8.7 mg/dl (8.4-10.2); Glucose 95 mg/dl (74-100)
[2020-06-19 08:00] VITALS: BP 172/77; PULSE 57; PULSE 58; RESP 18; TEMP 37.1; O2SAT 97
--- NOTE | 2020-06-19 10:15 | HMH.ACPN2 ---
Internal Medicine - PN: Subj *Date: 06/19/20 *Time: 10:15 Interval history: doing better culture pending Exam Vital signs and Labs for Last 24 Hours: Temp Pulse Resp BP Pulse Ox 98.8 F 58 L 18 172/77 H 97 06/19/20 08:00 06/19/20 08:00 06/19/20 08:00 06/19/20 08:00 06/19/20 08:00 Laboratory Results - last 24 hr 06/19/20 06:24: WBC 6.8, RBC 4.33, Hgb 13.0, Hct 40.0, MCV 92.3, MCH 30.0, MCHC 32.5, RDW 14.2, Plt Count 175, MPV 10.0, Neut % (Auto) 62.1, Lymph % (Auto) 28.9, [place] % (Auto) 6.3, Eos % (Auto) 2.3, Baso % (Auto) 0.4, Neut # (Auto) 4.2, Lymph # (Auto) 2.0, [place] # (Auto) 0.4, Eos # (Auto) 0.2, Baso # (Auto) 0.0 06/19/20 06:24: Sodium 141, Potassium 4.0, Chloride 107, Carbon Dioxide 27, Anion Gap 11.0, BUN 11, Creatinine 1.00, Estimated Creat Clear 45, Estimated GFR 54 L, Est GFR ( Amer) 65, Glucose 95, Calcium 8.7 I & O for Last 24 hours: Intake & Output 06/16/20 06/17/20 06/18/20 06/19/20 11:59 11:59 11:59 11:59 Intake Total 634 / 634 1934 Output Total 400 / 400 Balance 234 / 234 1934 Weight 130 lb 12.804 oz 130 lb 1 oz Microbiology Reports for the Last 24 Hours: Microbiology 06/17/20 19:34 Urine,Clean Catch Urine Culture - Preliminary - Constitutional no acute distress - *Routine HEENT Exam Head: Present: normocephalic Eye: Present: EOMI, PERRL ENT: Present: mucous membranes moist - *Routine Neck Exam Present: supple - *Routine Respiratory Exam Absent: respiratory distress - *Routine Cardiovascular Exam Present: RRR - *Routine Abdominal Exam Present: soft - *Routine Extremities Exam Absent: calf tenderness - *Routine Skin Exam Present: intact - *Routine Neurological Exam Present: alert, CN II-XII intact - Routine Psychiatric Exam Absent: auditory hallucinations, visual hallucinations Assessment and Plan (1) Acute delirium Status: Acute Category: Medical Code(s): R41.0 - Disorientation, unspecified (2) Dementia Status: Acute Qualifiers: Dementia type: unspecified type Dementia behavioral disturbance: without behavioral disturbance Qualified Code(s): F03.90 - Unspecified dementia without behavioral disturbance Category: Medical Code(s): F03.90 - Unspecified dementia without behavioral disturbance (3) Renal insufficiency Status: Acute Category: Medical Code(s): N28.9 - Disorder of kidney and ureter, unspecified (4) Urinary tract infection Status: Acute Qualifiers: Urinary tract infection type: site unspecified Hematuria presence: without hematuria Qualified Code(s): N39.0 - Urinary tract infection, site not specified Category: Medical Code(s): N39.0 - Urinary tract infection, site not specified
[2020-06-19 16:00] VITALS: BP 165/76; PULSE 63; RESP 16; TEMP 36.8; O2SAT 99
--- NOTE | 2020-06-19 16:34 | PC.NURSE ---
PT IS SITTING UP IN THE CHAIR. NO COMPLAINTS OF DISCOMFORT. PT HAS AMBULATED IN THE ROOM AND HALLWAY SEVERAL TIMES T/O THE SHIFT. ALERT AND ORIENTED X3. LUNG SOUNDS CLEAR. ABDOMEN SOFT/NON TENDER WITH ACTIVE BOWEL SOUNDS. IV SL. EATING AND DRINKING WELL. VSS. WILL CONTINUE TO MONITOR.
[2020-06-19 19:57] VITALS: BP 163/69; PULSE 56; RESP 16; TEMP 36.4; O2SAT 97
[2020-06-19 20:00] VITALS: PULSE 56; RESP 16; O2SAT 97
[2020-06-20 04:00] VITALS: BP 153/76; PULSE 57; RESP 16; TEMP 36.6; O2SAT 96
[2020-06-20 05:00] VITALS: BMI 23.3
--- NOTE | 2020-06-20 05:27 | PC.NURSE ---
shift summary, no acute changes since prior assessment, pt has rested well in chair t/o shift, pt did have several episodes of confusion at beginning of shift, pt reoriented to situation, pt has ambulated to bathroom independently, pt has ambulated in hallway independently, gate steady and balance satisfactory, pt has had no complaints of pain or SOA
[2020-06-20 06:47] LABS: Basophils % 0.5 % (0.1-2.0); Eosinophils # 0.1 K/mm3 (0.0-0.4); Eosinophils % 1.8 % (0.1-12.0); Hematocrit 41.7 % (37.0-47.0); Hemoglobin 13.8 g/dL (12.2-16.2); Lymphocytes # 1.7 K/mm3 (0.7-4.5); Lymphocytes % 23.2 % (10-50); Mean Corpuscular Hemoglobin 30.2 pg (27.0-31.2); Mean Corpuscular Volume 91.5 fl (81-99); Mean Platelet Volume 10.1 fl (7.4-10.4); Monocytes # 0.4 K/mm3 (0.1-1.0); Monocytes % 5.9 % (1.7-9.3); Neutrophils % 68.7 % (37.0-80.0); Platelet Count 170 K/mm3 (142-424); Red Blood Count 4.56 M/mm3 (4.20-5.40); Red Cell Distribution Width 14.3 % (11.5-17.5); White Blood Count 7.3 K/mm3 (4.8-10.8)
[2020-06-20 06:54] LABS: Blood Urea Nitrogen 10 mg/dl (7-17); Calcium 9.1 mg/dl (8.4-10.2); Carbon Dioxide 29 mmol/L (22.0-30.0); Chloride 104 mmol/L (98-107); Creatinine Clearance Estimated 44 mL/min (50-200); Estimated Glomerular Filt Rate 61 ml/min (>60); GFR (African American) 74 ML/MIN (>60); Glucose 91 mg/dl (74-100); Sodium 141 mmol/L (136-145)
[2020-06-20 08:00] VITALS: BP 151/74; PULSE 62; RESP 16; TEMP 36.8; O2SAT 98
--- NOTE | 2020-06-21 06:49 | SW/DCPLANNER ---
PATIENT DISCHARGED ON WEDNESDAY 06/20 TO HOME....INFORMATION WAS FAXED TO [facility] ON SUNDAY WITH ORDERS THAT PATIENT WOULD DISCHARGE OVER THE WEEKEND.. I HAVE FAXED ADDITIONAL INFORMATION AND ASKED FOR SOMEONE TO SEE HER TODAY IF POSSIBLE..
== END 2020-06-20 14:50 | disposition home or self-care (01) ==
LOC: ER 21:27 → 2ND 21:51
PROVIDERS: Nurse Practitioner Family; Admitting Provider Emergency Medicine; Emergency Provider Emergency Medicine; PCP Internal Medicine; Visit Provider Family Medicine
DX: N39.0 Urinary tract infection, site not specified (principal); I10 Essential (primary) hypertension; R41.0 Disorientation, unspecified; Z79.899 Other long term (current) drug therapy
CPT/HCPCS: 36415; 80048; 80053; 81001; 83735; 84436; 84443; 85025; 86328; 87086; 96365; 96375; 97162; 97165; 97530; 97535; 99284; G0378

== ENCOUNTER → 2020-07-08 08:58 | Outpatient (POV) | payer MEDICARE, BC, SELFPAY | PROVIDERS: Visit Provider Audiologist | DX: Z00.00 Encounter for general adult medical examination without abnormal findings (principal) ==

== ENCOUNTER → 2020-08-05 11:08 | Outpatient (POV) | payer MEDICARE, BC, SELFPAY | PROVIDERS: Visit Provider Audiologist | DX: Z00.00 Encounter for general adult medical examination without abnormal findings (principal) ==

== ENCOUNTER → 2020-11-09 17:44 | Outpatient (CLI) | payer MEDICARE, BC, SELFPAY | PROVIDERS: Visit Provider Family Medicine | DX: N39.0 Urinary tract infection, site not specified (principal) | CPT/HCPCS: 87086 ==

== ENCOUNTER → 2021-01-05 14:26 | Outpatient (CLI) | payer MEDICARE, BC, SELFPAY | PROVIDERS: Visit Provider Urology | DX: N30.20 Other chronic cystitis without hematuria (principal); Z01.812 Encounter for preprocedural laboratory examination; Z20.822 Contact with and (suspected) exposure to COVID-19 | CPT/HCPCS: U0003 ==

== ENCOUNTER 2021-01-07 10:13 | Day surgery (SDC) | payer MEDICARE, BC, SELFPAY ==
[2021-01-07 10:34] VITALS: BP 132/57; PULSE 52; RESP 18; TEMP 36.6; O2SAT 92; BMI 23.6
[2021-01-07 11:44] VITALS: BP 153/67; PULSE 51; RESP 18; TEMP 36.3; O2SAT 99
--- NOTE | 2021-01-07 13:14 | HMH.OPNOTE ---
Date of procedure: 01/07/21 Pre-op Diagnosis:: Recurrent urinary tract infections Post-op Diagnosis:: Same Procedure performed:: Cystoscopy Surgeon:: Damir Gold MD Anesthesia: local Estimated blood loss (mL): 0 Clinical Note:: 75-year-old white female with some mild dementia has some recurrent symptoms of dysuria. There have not been any urine cultures to document UTIs but she does have history of cystocele repair and transvaginal taping and cystoscopy is recommended to rule out any foreign bodies. Operative findings:: Bladder was within normal limits. 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 Operative note:: Patient taken to the cystoscopy suite after informed consent was obtained. On the stretcher she was placed in the frog-leg position and prepped draped in standard surgical fashion and 2% lidocaine placed into the urethra. On examination the urethra showed a mild amount of urethral prolapse. The flexible cystoscope placed into the urethral meatus and passed into the bladder without difficulty. The bladder was examined in a systematic fashion. There was no evidence of mucosal abnormalities, stones, diverticula or trabeculation. The ureteral orifices in their normal anatomic position and clear efflux of urine was noted. The bladder neck and urethra were within normal limits. The scope was removed and I discussed the findings with the patient and her [id number] today. A prescription for Estrace cream was given to apply to the urethral meatus 2 times a week. We also discussed taking 2 cranberry tablets a day to help prevent any UTIs. She will return as needed. Condition: stable Disposition: same day Specimens:: None Complications:: None
== END 2021-01-07 11:55 | disposition home or self-care (01) ==
LOC: OUTP 10:16
PROVIDERS: PCP Family Medicine; Visit Provider Urology
DX: N81.0 Urethrocele (principal); N30.20 Other chronic cystitis without hematuria; Z87.440 Personal history of urinary (tract) infections; F41.9 Anxiety disorder, unspecified; Z85.9 Personal history of malignant neoplasm, unspecified; E78.5 Hyperlipidemia, unspecified; I10 Essential (primary) hypertension; M85.80 Other specified disorders of bone density and structure, unspecified site; M19.90 Unspecified osteoarthritis, unspecified site; M94.0 Chondrocostal junction syndrome [Tietze]; I20.9 Angina pectoris, unspecified; Z79.899 Other long term (current) drug therapy
CPT/HCPCS: 52000

== ENCOUNTER 2021-03-18 16:58 | Observation (INO) | payer MEDICARE, BC, SELFPAY ==
[2021-03-18 16:59] VITALS: BP 147/70; PULSE 57; RESP 18; TEMP 36.8; O2SAT 99; BMI 23.0
[2021-03-18 17:28] VITALS: PULSE 67; O2SAT 97
[2021-03-18 17:38] LABS: Microscopic, Urine URINE MICROSCOPIC (MICROSCOPIC)
[2021-03-18 17:41] LABS: Appearance,Urine SL CLOUDY (Clear); Bilirubin,Urine Negative (Negative); Blood, Urine TRACE-I (Negative); Color,Urine YELLOW (Yellow); Glucose,Urine (UA) Negative (Negative); Ketones,Urine Negative (Negative); Leukocyte Esterase,Urine 1+ (Negative); Nitrate,Urine Negative (Negative); PH,Urine 5.5 (5.0-8.5); Protein,Urine Negative (Negative); Specific Gravity, Urine 1.025 (1.005-1.030); Urobilinogen,Urine 0.2 EU/dl (0.2)
[2021-03-18 17:43] VITALS: PULSE 53; O2SAT 96
[2021-03-18 17:45] VITALS: PULSE 58; O2SAT 98
[2021-03-18 17:52] LABS: Bacteria,Urine Trace /lpf; WBC,Urine Occasional #/hpf (0-3)
[2021-03-18 17:53] LABS: Basophils # 0.1 K/mm3 (0-0.2); Eosinophils # 0.1 K/mm3 (0.0-0.4); Eosinophils % 1.4 % (0.1-12.0); Hemoglobin 12.5 g/dL (12.2-16.2); Lymphocytes # 1.1 K/mm3 (0.7-4.5); Lymphocytes % 19.2 % (10-50); Mean Corpuscular HGB Conc 33.7 g/dL (31.8-35.4); Mean Corpuscular Hemoglobin 30.2 pg (27.0-31.2); Mean Corpuscular Volume 89.6 fl (81-99); Mean Platelet Volume 9.6 fl (7.4-10.4); Monocytes # 0.5 K/mm3 (0.1-1.0); Monocytes % 8.3 % (1.7-9.3); Neutrophils # 4.1 K/mm3 (1.8-7.8); Neutrophils % 70.1 % (37.0-80.0); Platelet Count 146 K/mm3 (142-424); Red Blood Count 4.13 M/mm3 (4.20-5.40); Red Cell Distribution Width 14.4 % (11.5-17.5); White Blood Count 5.9 K/mm3 (4.8-10.8)
--- NOTE | 2021-03-18 17:54 | HMH.EDGENADL ---
ED Disposition Clinical Impression: Altered mental status Qualifiers: Altered mental status type: unspecified Qualified Code(s): R41.82 - Altered mental status, unspecified Disposition: Admitted as Observation Condition on Discharge: Good Time of Disposition: 18:27 - Critical Care Critical Care Time: No Attestation: On 03/18/21, the high probability of a clinically significant, sudden or life threatening deterioration of the following system(s) required my full and direct attention, intervention and personal management. The time I documented below is in addition to time spent performing reported procedures but includes the following listed in this critical care notation. Medical Decision Making - Medical Records Medical records reviewed: Yes: I reviewed the patient's medical records. - Bharathi Inquiry Pt receiving controlled substance: No Vital Signs: 03/18/21 16:59 03/18/21 17:28 03/18/21 17:43 Temperature 98.2 F Temperature Source Oral Pulse Rate 67 53 L Pulse Rate [Right] 57 L Respiratory Rate 18 Blood Pressure [Right Arm] 147/70 H Blood Pressure Mean [Right Arm] 95 02 Sat by Pulse Oximetry 99 97 96 Oxygen Delivery Method Room Air 03/18/21 17:45 Temperature Temperature Source Pulse Rate 58 L Pulse Rate [Right] Respiratory Rate Blood Pressure [Right Arm] Blood Pressure Mean [Right Arm] 02 Sat by Pulse Oximetry 98 Oxygen Delivery Method - Lab Data Lab results reviewed: Yes: I reviewed the patient's lab results. Lab Results 03/18/21 17:30: Urine Color Yellow, Urine Appearance Sl cloudy, Urine pH 5.5, Ur Specific [place] 1.025, Urine Protein Negative, Urine Glucose (UA) Negative, Urine Ketones Negative, Urine Blood Trace-i, Urine Nitrate Negative, Urine Bilirubin Negative, Urine Urobilinogen 0.2, Ur Leukocyte Esterase 1+ A, Urine RBC None, Urine WBC Occasional, Ur Squamous Epith Cells 3-5, Urine Bacteria Trace 03/18/21 17:35: WBC 5.9, RBC 4.13 L, Hgb 12.5, Hct 37.0, MCV 89.6, MCH 30.2, MCHC 33.7, RDW 14.4, Plt Count 146, MPV 9.6, Neut % (Auto) 70.1, Lymph % (Auto) 19.2, [place] % (Auto) 8.3, Eos % (Auto) 1.4, Baso % (Auto) 1.0, Neut # (Auto) 4.1, Lymph # (Auto) 1.1, [place] # (Auto) 0.5, Eos # (Auto) 0.1, Baso # (Auto) 0.1 03/18/21 17:35: Sodium 138, Potassium 3.7, Chloride 102, Carbon Dioxide 28, Anion Gap 11.7, BUN 14, Creatinine 1.00, Estimated Creat Clear 44, Estimated GFR 54 L, Est GFR ( Amer) 65, Glucose 91, Calcium 8.7 Result diagrams: 03/18/21 17:35 03/18/21 17:35 Orders (Tests/Meds): ORDERS Category Date Time Status Urine Culture Stat Micro 03/18/21 17:30 Received Medical Decision Narrative: 75yo F evaluated for dementia as decreased cognitive status. Patient no acute distress on initial evaluation. She is unable to contribute to her history at all. HPI and ROS are per her son at bedside. CBC, BMP, urinalysis are pending. Once resulted, will contact Dr. Stoner to inform him of the results and confirm his desire to admit. Urinalysis is unremarkable for possible urinary tract infection. General Adult HPI - General Chief complaint: Altered Mental Status Stated complaint: poss UTI,confusion Time Seen by Provider: 03/18/21 17:54 Mode of Arrival: Ambulatory Source of Information: Relative Limitations: dementia Description of Symptoms (Recalled from ER Triage Doc. by RN): sent in by Dr. Stoner for admission. tested for UTI yesterday, did not receive results. family member states increased confusion complicated by dementia - History of Present Illness HPI narrative: 75yo F sent to the emergency department by Dr. Stoner for evaluation of possible UTI and decline in mental status. Patient has dementia has been progressively worsening quickly over the past several weeks to months. Patient is unable to contribute to her history at all. Son is at bedside and states the patient wandered off for the first time. They found her quite a distance from her home with onl
[2021-03-18 17:57] LABS: Anion Gap 11.7 mEq/L (5-15); Blood Urea Nitrogen 14 mg/dl (7-17); Calcium 8.7 mg/dl (8.4-10.2); Carbon Dioxide 28 mmol/L (22.0-30.0); Chloride 102 mmol/L (98-107); Creatinine Clearance Estimated 44 mL/min (50-200); Estimated Glomerular Filt Rate 54 ml/min (>60); GFR (African American) 65 ML/MIN (>60); Glucose 91 mg/dl (74-100); Potassium 3.7 mmoL/L (3.5-5.1); Sodium 138 mmol/L (136-145)
[2021-03-18 18:36] LABS: Coronavirus 19, PCR Not Detected (NotDetected); Influenza A, PCR Not Detected (NotDetected); Influenza B, PCR Not Detected (NotDetected)
--- NOTE | 2021-03-18 18:56 | PC.NURSE ---
Report given to MUKUL Cadet
[2021-03-18 18:58] VITALS: BP 142/66; PULSE 54; RESP 18; TEMP 37.1; O2SAT 99
[2021-03-18 19:11] VITALS: BMI 21.9
[2021-03-18 20:00] VITALS: BP 150/62; PULSE 48; RESP 16; TEMP 36.8; O2SAT 98
--- NOTE | 2021-03-18 20:13 | PC.NURSE ---
PT ARRIVED TO FLOOR VIA W/C FROM ED W/STAFF AT 2009
[2021-03-19 03:55] VITALS: BP 126/58; PULSE 53; RESP 16; TEMP 36.6; O2SAT 96
[2021-03-19 05:06] VITALS: BMI 22.1
[2021-03-19 06:03] LABS: Basophils % 0.4 % (0.1-2.0); Eosinophils # 0.1 K/mm3 (0.0-0.4); Hematocrit 38.2 % (37.0-47.0); Hemoglobin 12.7 g/dL (12.2-16.2); Lymphocytes # 1.6 K/mm3 (0.7-4.5); Lymphocytes % 34.6 % (10-50); Mean Corpuscular HGB Conc 33.2 g/dL (31.8-35.4); Mean Corpuscular Volume 90.1 fl (81-99); Mean Platelet Volume 9.5 fl (7.4-10.4); Monocytes # 0.5 K/mm3 (0.1-1.0); Monocytes % 10.2 % (1.7-9.3); Neutrophils # 2.5 K/mm3 (1.8-7.8); Neutrophils % 53.7 % (37.0-80.0); Platelet Count 128 K/mm3 (142-424); Red Blood Count 4.24 M/mm3 (4.20-5.40); Red Cell Distribution Width 14.5 % (11.5-17.5); White Blood Count 4.6 K/mm3 (4.8-10.8)
[2021-03-19 06:23] LABS: Blood Urea Nitrogen 12 mg/dl (7-17); Calcium 8.5 mg/dl (8.4-10.2); Carbon Dioxide 27 mmol/L (22.0-30.0); Chloride 104 mmol/L (98-107); Creatinine Clearance Estimated 42 mL/min (50-200); Estimated Glomerular Filt Rate 70 ml/min (>60); GFR (African American) 85 ML/MIN (>60); Glucose 78 mg/dl (74-100); Sodium 140 mmol/L (136-145)
[2021-03-19 08:00] VITALS: BP 117/81; PULSE 52; RESP 16; TEMP 36.6; O2SAT 97
--- NOTE | 2021-03-19 08:57 | HMH.PHAVTE ---
[facility] Pharmacy VTE Monitoring - Patient Demographics Admission date: 03/18/21 Report Date: 03/19/21 Time: 08:57 Allergies/Adverse Reactions: Patient Allergies latex Allergy (Intermediate, Verified 03/18/21 17:16) I-RASH Iodinated Contrast Media Allergy (Unknown, Verified 03/18/21 17:16) Unknown allergy reaction Sulfa (Sulfonamide Antibiotics) Allergy (Verified 03/18/21 17:16) Height: 1.57 m Weight: 54.5 kg Patient Problems: Current Active Problems Altered mental status (Acute) - VTE Risk Labs: VTE Related Lab Results Hgb 12.7 g/dL (12.2-16.2) 03/19/21 05:30 Hct 38.2 % (37.0-47.0) 03/19/21 05:30 Plt Count 128 K/mm3 (142-424) L 03/19/21 05:30 BUN 12 mg/dl (7-17) 03/19/21 05:30 Creatinine 0.80 mg/dl (0.52-1.04) 03/19/21 05:30 Estimated Creat Clear 42 mL/min (50-200) 03/19/21 05:30 Was VTE Risk Assessment Performed: Yes VTE Risk Level: Moderate Risk - Prophylaxis VTE Prophylaxis Ordered?: Yes Types of VTE Prophylaxis: IPCS Thigh High Location of Applied Device: Bilateral Lower Extremeties
--- NOTE | 2021-03-19 13:22 | HMH.HP ---
*Admission Date: 03/18/21 *Chief complaint: mental status changes *History of present illness: Patient is a 75-year-old white female, known to me from the office. She has underlying dementia which is following a progressive course. She has marked decompensations correlate with urinary tract infections. Received an urgent call from the family yesterday being marked mental status alterations. She was extremely confused, wandered quite a distance from the house and was frankly lost. She presented to the emergency room, and evidence of a UTI was found. And is unable to relay a good history, but is reporting some pain her lumbar and thoracic spine. Dates that she may have fallen. She is aphonic and grossly osteopenic. No signs of trauma on the head. [facility] History Medical History: Reports:: Anxiety, Cancer, Dementia, Hyperlipidemia, Hypertension Denies:: Diabetes Mellitus Type 1, Diabetes Mellitus Type 2, Internal Pacemaker, MRSA, Seizures *Have you ever received a pneumonia vaccine?: Yes *Have you received a flu vaccine this season?: No Other Medical History: Reports: Arthritis, Cataracts, Other Other Surgeries: Yes: No Previous Surgery, Appendectomy, Cancer Surgery, Colonoscopy, Hysterectomy-Total. No: Pacemaker Amputation: No Fractures: No - *Social History Smoking Status: Never smoker Alcohol Intake: never Substance Use Type: denies use *Occupational Status:: retired Housing: house Household Members: none *Travel in the last 8 weeks: None - Psychiatric History Pschychiatric History:: Reports:: Anxiety Family Hx:: Cancer Review of Systems - Constitutional Reports lack of energy - Eyes Denies double vision - ENT Denies abnormal hearing - *Cardiovascular Denies chest pain - *Respiratory Denies cough - *Genitourinary Reports painful urination - *Musculoskeletal Reports joint pain, Reports decreased muscle mass, Reports loss of height, Reports stiffness - Integumentary/Breasts Denies yellowing of the skin - *Neurologic Reports abnormal walking, Reports confusion, Reports unsteadiness, Reports memory loss, Reports weakness, Denies seizure-like activity - Psychiatric Reports behavioral changes, Reports confusion, Reports memory loss - Endocrine Denies rapid, pounding, or irregular heartbeat - Hematologic/Lymphatic Denies easy bleeding, Denies easy bruising - Allergic/Immunologic Denies wheezing Meds Home Medications Medication Instructions Recorded Confirmed Type aspirin 81 mg tablet,delayed 81 mg PO DAILY 08/06/18 03/18/21 History release atorvastatin 20 mg tablet 20 mg PO DAILY #90 tab 01/27/21 03/18/21 Rx donepezil 10 mg tablet 10 mg PO HS #90 tab 01/27/21 03/18/21 Rx enalapril maleate 10 mg tablet 10 mg PO DAILY #90 tab 01/27/21 03/18/21 Rx ergocalciferol (vitamin D2) 1,250 50,000 unit PO WEEKLY #14 cap 01/27/21 03/18/21 Rx mcg (50,000 unit) capsule memantine 10 mg tablet 10 mg PO BID #180 tab 01/27/21 03/18/21 Rx nadolol 40 mg tablet 40 mg PO DAILY #90 tab 01/27/21 03/18/21 Rx Fluoxetine HCl [Prozac] 20 mg PO DAILY 03/18/21 03/18/21 History Allergies Allergy/AdvReac Type Severity Reaction Status Date / Time latex Allergy Intermediate I-RASH Verified 03/18/21 17:16 Iodinated Contrast Media Allergy Unknown Unknown Verified 03/18/21 17:16 allergy reaction Sulfa (Sulfonamide Allergy Verified 03/18/21 17:16 Antibiotics) Exam Vital signs and Labs for Last 24 Hours: Temp Pulse Resp BP Pulse Ox 97.9 F 52 L 16 117/81 97 03/19/21 08:00 03/19/21 08:00 03/19/21 08:00 03/19/21 08:00 03/19/21 08:00 Laboratory Results - last 24 hr 03/18/21 17:30: Urine Color Yellow, Urine Appearance Sl cloudy, Urine pH 5.5, Ur Specific [place] 1.025, Urine Protein Negative, Urine Glucose (UA) Negative, Urine Ketones Negative, Urine Blood Trace-i, Urine Nitrate Negative, Urine Bilirubin Negative, Urine Urobilinogen 0.2, Ur Leukocyte Esterase 1+ A, Urine RBC None,
--- NOTE | 2021-03-19 13:36 | CT_ITS ---
PROCEDURE INFORMATION: Exam: CT Head Without Contrast Exam date and time: 03/19/2021 1:36 PM Age: 75 years old Clinical indication: Altered mental status/memory loss; Additional info: Mental status changes TECHNIQUE: Imaging protocol: Computed tomography of the head without contrast. Radiation optimization: All CT scans at this facility use at least one of these dose optimization techniques: automated exposure control; mA and/or kV adjustment per patient size (includes targeted exams where dose is matched to clinical indication); or iterative reconstruction. COMPARISON: No relevant prior studies available. FINDINGS: Brain: Symmetric prominence of the cortical sulci. Mild small vessel ischemic change. No acute cortical infarct, mass effect, or intracranial hemorrhage. Cerebral ventricles: Mild asymmetry in caliber of the lateral ventricles and occipital horns. Paranasal sinuses: Localized inflammatory change in the right maxillary sinus. Mastoid air cells: No mastoid effusion. Bones/joints: No acute calvarial pathology. Soft tissues: Unremarkable soft tissues. IMPRESSION: Right maxillary sinusitis, without acute intracranial pathology.
--- NOTE | 2021-03-19 13:37 | XR_ITS ---
PROCEDURE INFORMATION: Exam: XR Lumbosacral Spine Exam date and time: 03/19/2021 1:37 PM Age: 75 years old Clinical indication: Low back pain TECHNIQUE: Imaging protocol: XR of the lumbosacral spine. Views: 2 or 3 views. COMPARISON: No relevant prior studies available. FINDINGS: Bones/joints: Osteopenia and degenerative change. Mild vertebral endplate depression, without rigoberto compression fracture. Grade 1 anterolisthesis of L4 on L5 with prominent facet arthropathy. Gastrointestinal tract: Prominent stool. Vasculature: Vascular calcification. IMPRESSION: 1. Osteopenia and degenerative change. 2. Grade 1 anterolisthesis of L4 on L5 with prominent facet arthropathy.
--- NOTE | 2021-03-19 13:37 | XR_ITS ---
PROCEDURE INFORMATION: Exam: XR Thoracic Spine Exam date and time: 03/19/2021 1:37 PM Age: 75 years old Clinical indication: Pain in thoracic spine TECHNIQUE: Imaging protocol: XR of the thoracic spine. Views: 2 views. COMPARISON: No relevant prior studies available. FINDINGS: Bones/joints: Osteopenia, degenerative change, and exaggerated thoracic kyphosis. Anatomic alignment. Soft tissues: Calcified lymph nodes in association with chronic granulomatous disease. IMPRESSION: Osteopenia, degenerative change, and exaggerated thoracic kyphosis.
[2021-03-19 16:00] VITALS: BP 152/55; PULSE 44; RESP 16; TEMP 36.6; O2SAT 98
--- NOTE | 2021-03-19 16:19 | HMH.PHAINT ---
MEDICATION RECONCILIATION COMPLETED ON PATIENT USING EXTERNAL FILL HISTORY FROM PHARMACY. -ARISTEO HUDSON, CLYDED
--- NOTE | 2021-03-19 18:40 | PC.NURSE ---
SHE IS AO TO HER NAME, PLEASANTLY CONFUSED T/O SHIFT, SHE IS ABLE TO AMBULATE WITH STANDBY ASSIST TO THE RESTROOM. SHE DOES NOT REQUIRE O2 SUPPORT, TOLERATING DIET WELL, DENIES N/V/D, SHE HAS BEEN BRADYCARDIC THIS SHIFT, NO NEEDS VOICED.
[2021-03-19 20:00] VITALS: BP 126/64; PULSE 62; RESP 18; TEMP 37.2; O2SAT 94
[2021-03-20 05:00] VITALS: BMI 22.1
[2021-03-20 06:55] LABS: Basophils % 0.7 % (0.1-2.0); Eosinophils # 0.1 K/mm3 (0.0-0.4); Eosinophils % 1.7 % (0.1-12.0); Hematocrit 38.6 % (37.0-47.0); Hemoglobin 12.8 g/dL (12.2-16.2); Lymphocytes # 1.7 K/mm3 (0.7-4.5); Lymphocytes % 35.6 % (10-50); Mean Corpuscular HGB Conc 33.2 g/dL (31.8-35.4); Mean Corpuscular Hemoglobin 29.7 pg (27.0-31.2); Mean Corpuscular Volume 89.5 fl (81-99); Mean Platelet Volume 9.8 fl (7.4-10.4); Monocytes # 0.3 K/mm3 (0.1-1.0); Monocytes % 7.1 % (1.7-9.3); Neutrophils # 2.6 K/mm3 (1.8-7.8); Neutrophils % 54.9 % (37.0-80.0); Platelet Count 130 K/mm3 (142-424); Red Blood Count 4.31 M/mm3 (4.20-5.40); Red Cell Distribution Width 14.4 % (11.5-17.5); White Blood Count 4.7 K/mm3 (4.8-10.8)
[2021-03-20 07:05] LABS: Chloride 106 mmol/L (98-107); Potassium 3.7 mmoL/L (3.5-5.1); Sodium 140 mmol/L (136-145)
[2021-03-20 07:08] LABS: Alanine Aminotransferase 8 U/L (12-78); Albumin Level 3.7 g/dl (3.5-5.0); Albumin/Globulin Ratio 1.4 (1.1-1.8); Alkaline Phosphatase 97 U/L (38-126); Anion Gap 8.7 mEq/L (5-15); Aspartate Amino Transferase 30 U/L (14-36); Bilirubin,Total 0.7 mg/dl (0.2-1.3); Blood Urea Nitrogen 15 mg/dl (7-17); Calcium 8.4 mg/dl (8.4-10.2); Carbon Dioxide 29 mmol/L (22.0-30.0); Creatinine Clearance Estimated 42 mL/min (50-200); Estimated Glomerular Filt Rate 70 ml/min (>60); GFR (African American) 85 ML/MIN (>60); Globulin 2.6 g/dL (1.3-3.2); Glucose 94 mg/dl (74-100); Total Protein,Serum 6.3 g/dl (6.3-8.2)
[2021-03-20 07:14] LABS: Ammonia < 9 umol/L (9-30)
[2021-03-20 07:38] LABS: Thyroid Stimulating Hormone 2.01 uIU/mL (0.465-4.68)
[2021-03-20 08:00] VITALS: BP 144/68; PULSE 59; RESP 18; TEMP 36.8; O2SAT 98
--- NOTE | 2021-03-20 13:29 | HMH.ACPN2 ---
Internal Medicine - PN: Subj *Date: 03/20/21 *Time: 13:29 Interval history: Patient remains confused this morning but pleasantly so. In the interval she had a CT of her brain which showed no acute injury. X-ray of her T-spine which showed kyphosis without compression fracture. X-ray of her L-spine which showed a grade 1 anterolisthesis of 4 on L5. An incidental right maxillary sinusitis was seen on CT of the brain. She is on IV Rocephin for a presumptive UTI. Urine culture is pending. Exam Vital signs and Labs for Last 24 Hours: Temp Pulse Resp BP Pulse Ox 98.2 F 59 L 18 144/68 H 98 03/20/21 08:00 03/20/21 08:00 03/20/21 08:00 03/20/21 08:00 03/20/21 08:00 Laboratory Results - last 24 hr 03/20/21 06:45: WBC 4.7 L, RBC 4.31, Hgb 12.8, Hct 38.6, MCV 89.5, MCH 29.7, MCHC 33.2, RDW 14.4, Plt Count 130 L, MPV 9.8, Neut % (Auto) 54.9, Lymph % (Auto) 35.6, Hand % (Auto) 7.1, Eos % (Auto) 1.7, Baso % (Auto) 0.7, Neut # (Auto) 2.6, Lymph # (Auto) 1.7, Hand # (Auto) 0.3, Eos # (Auto) 0.1, Baso # (Auto) 0.0 03/20/21 06:45: Sodium 140, Potassium 3.7, Chloride 106, Carbon Dioxide 29, Anion Gap 8.7, BUN 15, Creatinine 0.80, Estimated Creat Clear 42, Estimated GFR 70, Est GFR ( Amer) 85, Glucose 94, Calcium 8.4, Total Bilirubin 0.7, AST 30, ALT 8 L, Alkaline Phosphatase 97, Total Protein 6.3, Albumin 3.7, Globulin 2.6, Albumin/Globulin Ratio 1.4, TSH 2.01 03/20/21 06:45: Ammonia < 9 L I & O for Last 24 hours: Intake & Output 03/17/21 03/18/21 03/19/21 03/20/21 23:59 23:59 23:59 23:59 Intake Total 50 / 50 720 / 720 Balance 50 / 50 720 / 720 Weight 119 lb 2 oz 120 lb 2.431 oz 120 lb 2 oz Microbiology Reports for the Last 24 Hours: Microbiology 03/18/21 17:30 Urine,Clean Catch Urine Culture - Preliminary - Constitutional no acute distress, thin - *Routine HEENT Exam Head: Present: normocephalic Eye: Present: EOMI, PERRL ENT: Present: mucous membranes moist - *Routine Neck Exam Present: supple. Absent: lymphadenopathy - *Routine Respiratory Exam Present: CTA bilaterally - *Routine Cardiovascular Exam Present: RRR - *Routine Abdominal Exam Present: soft, normoactive bowel sounds. Absent: tenderness - *Routine Extremities Exam Absent: cyanosis, clubbing, edema - Routine Back/Spine/Pelvis Exam Back/Spine: Present: vertebral tenderness, kyphosis, pain with rotation - *Routine Skin Exam Present: warm. Absent: rash - *Routine Neurological Exam Present: alert, oriented X3, vision grossly intact, hearing grossly intact - Routine Psychiatric Exam Present: depressed. Absent: good insight, good judgment Assessment and Plan (1) Altered mental status Status: Acute Qualifiers: Altered mental status type: disorientation Qualified Code(s): R41.0 - Disorientation, unspecified Category: Medical Code(s): R41.82 - Altered mental status, unspecified (2) Back pain Status: Acute Category: Medical Code(s): M54.9 - Dorsalgia, unspecified (3) Kyphosis Status: Chronic Category: Medical Code(s): M40.209 - Unspecified kyphosis, site unspecified (4) Acute delirium Status: Acute Category: Medical Code(s): R41.0 - Disorientation, unspecified (5) Dementia Status: Chronic Qualifiers: Dementia type: unspecified type Dementia behavioral disturbance: without behavioral disturbance Qualified Code(s): F03.90 - Unspecified dementia without behavioral disturbance Category: Medical Code(s): F03.90 - Unspecified dementia without behavioral disturbance (6) Renal insufficiency Status: Chronic Category: Medical Code(s): N28.9 - Disorder of kidney and ureter, unspecified (7) Urinary tract infection Status: Acute Qualifiers: Urinary tract infection type: site unspecified Hematuria presence: without hematuria Qualified Code(s): N39.0 - Urinary tract infection, site not specified Category: Medical Code(s): N39.0 - Urinary
[2021-03-20 16:00] VITALS: BP 145/75; PULSE 60; RESP 20; TEMP 36.8; O2SAT 98
--- NOTE | 2021-03-20 19:44 | PC.NURSE ---
SHE HAS BEEN PLEASANTLY CONFUSED T/O SHIFT, SHE HAS BEEN UP TO CHAIR MOST OF SHIFT, NO ACUTE CHANGES, NO SIGNS OF DISTRESS.
[2021-03-20 20:00] VITALS: BP 145/54; PULSE 49; RESP 16; TEMP 36.8; O2SAT 97
[2021-03-21 04:00] VITALS: BP 121/61; PULSE 45; TEMP 36.6; O2SAT 98
[2021-03-21 05:00] VITALS: BMI 22.1
--- NOTE | 2021-03-21 07:52 | PC.NURSE ---
pt is alert to and name. pleasantly confused. iv patent and SL. slept in chair throughout shift. call light in reach. will continue to monitor
[2021-03-21 08:00] VITALS: BP 142/74; PULSE 52; RESP 19; TEMP 36.9; O2SAT 100
[2021-03-21 11:07] VITALS: BMI 21.9
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
--- NOTE | 2021-03-21 15:46 | HMH.ACPN2 ---
Internal Medicine - PN: Subj *Date: 03/21/21 *Time: 08:30 Interval history: pt sitting up in a chair states she feels ok Exam Vital signs and Labs for Last 24 Hours: Temp Pulse Resp BP Pulse Ox 98.5 F 52 L 19 142/74 H 100 03/21/21 08:00 03/21/21 08:00 03/21/21 08:00 03/21/21 08:00 03/21/21 08:00 I & O for Last 24 hours: Intake & Output 03/19/21 03/20/21 03/21/21 03/22/21 11:59 11:59 11:59 11:59 Intake Total 530 / 530 780 / 780 Output Total 0 / 0 Balance 530 / 530 780 / 780 Weight 120 lb 2.431 oz 120 lb 2 oz 119 lb 0.794 oz Microbiology Reports for the Last 24 Hours: Microbiology 03/18/21 17:30 Urine,Clean Catch Urine Culture - Final Multiple organisms, suggests contamination. - Constitutional no acute distress - *Routine HEENT Exam Head: Present: normocephalic Eye: Present: PERRL ENT: Present: mucous membranes moist - *Routine Neck Exam Present: supple. Absent: lymphadenopathy - *Routine Respiratory Exam Present: CTA bilaterally - *Routine Cardiovascular Exam Present: RRR - *Routine Abdominal Exam Present: soft, normoactive bowel sounds. Absent: tenderness - *Routine Extremities Exam Present: normal capillary refill. Absent: cyanosis, clubbing, edema - *Routine Skin Exam Present: warm. Absent: rash - *Routine Neurological Exam Present: alert, altered mental status - Routine Psychiatric Exam Present: normal affect Assessment and Plan (1) Altered mental status Status: Acute Qualifiers: Altered mental status type: disorientation Qualified Code(s): R41.0 - Disorientation, unspecified Category: Medical Code(s): R41.82 - Altered mental status, unspecified (2) Back pain Status: Acute Category: Medical Code(s): M54.9 - Dorsalgia, unspecified (3) Kyphosis Status: Chronic Category: Medical Code(s): M40.209 - Unspecified kyphosis, site unspecified (4) Acute delirium Status: Acute Category: Medical Code(s): R41.0 - Disorientation, unspecified (5) Dementia Status: Chronic Qualifiers: Dementia type: unspecified type Dementia behavioral disturbance: without behavioral disturbance Qualified Code(s): F03.90 - Unspecified dementia without behavioral disturbance Category: Medical Code(s): F03.90 - Unspecified dementia without behavioral disturbance (6) Renal insufficiency Status: Chronic Category: Medical Code(s): N28.9 - Disorder of kidney and ureter, unspecified (7) Urinary tract infection Status: Acute Qualifiers: Urinary tract infection type: site unspecified Hematuria presence: without hematuria Qualified Code(s): N39.0 - Urinary tract infection, site not specified Category: Medical Code(s): N39.0 - Urinary tract infection, site not specified - Assessment and plan all Dx Assessment and Plan for all problems:: rounded with dr cast all orders per dr cast waiting for cx results waiting for ltc placement
[2021-03-21 16:00] VITALS: BP 126/56; PULSE 69; RESP 20; TEMP 36.6; O2SAT 95
--- NOTE | 2021-03-21 18:19 | PC.NURSE ---
Pt has been pleasant and cooperative this shift. Alert to person only. No complaints of pain or SOA. Pt is currently on room air with sats. >90%. Lungs CTA. No edema noted. Skin is C/D/I. Pt ambulates independently to/from the bathroom and throughout the room. Pt has also sat up in the recliner intermittently this shift. Urine is clear and yellow. No BM thus far today. Appetite is good and pt eats the majority of all meals. 20 G peripheral IV in the RT AC is patent and SL. VSS. Call light within reach. Will continue to monitor.
[2021-03-21 20:00] VITALS: BP 149/82; PULSE 50; RESP 16; TEMP 36.8; O2SAT 98
[2021-03-22 04:00] VITALS: BP 172/82; PULSE 56; RESP 16; TEMP 36.8; O2SAT 97
[2021-03-22 05:00] VITALS: BMI 22.1
[2021-03-22 05:48] LABS: Basophils % 0.6 % (0.1-2.0); Eosinophils # 0.1 K/mm3 (0.0-0.4); Hematocrit 40.3 % (37.0-47.0); Hemoglobin 13.3 g/dL (12.2-16.2); Lymphocytes # 2.1 K/mm3 (0.7-4.5); Lymphocytes % 36.2 % (10-50); Mean Corpuscular HGB Conc 32.9 g/dL (31.8-35.4); Mean Corpuscular Hemoglobin 29.8 pg (27.0-31.2); Mean Corpuscular Volume 90.6 fl (81-99); Mean Platelet Volume 9.8 fl (7.4-10.4); Monocytes # 0.3 K/mm3 (0.1-1.0); Monocytes % 5.3 % (1.7-9.3); Neutrophils # 3.3 K/mm3 (1.8-7.8); Neutrophils % 56.8 % (37.0-80.0); Platelet Count 157 K/mm3 (142-424); Red Blood Count 4.45 M/mm3 (4.20-5.40); Red Cell Distribution Width 14.4 % (11.5-17.5); White Blood Count 5.9 K/mm3 (4.8-10.8)
[2021-03-22 05:52] LABS: Chloride 104 mmol/L (98-107); Potassium 4.3 mmoL/L (3.5-5.1); Sodium 141 mmol/L (136-145)
[2021-03-22 05:55] LABS: Anion Gap 10.3 mEq/L (5-15); Blood Urea Nitrogen 13 mg/dl (7-17); Carbon Dioxide 31 mmol/L (22.0-30.0); Creatinine Clearance Estimated 41 mL/min (50-200); Estimated Glomerular Filt Rate 54 ml/min (>60); GFR (African American) 65 ML/MIN (>60); Glucose 86 mg/dl (74-100)
[2021-03-22 08:00] VITALS: BP 153/67; PULSE 50; RESP 18; TEMP 36.4; O2SAT 99
--- NOTE | 2021-03-22 12:42 | HMH.DCSUM ---
General - General Admission date:: 03/18/21 Discharge date: 03/22/21 HPI HPI: Patient is a 75-year-old white female, known to me from the office. She has underlying dementia which is following a progressive course. She has marked decompensations correlate with urinary tract infections. Received an urgent call from the family yesterday being marked mental status alterations. She was extremely confused, wandered quite a distance from the house and was frankly lost. She presented to the emergency room, and evidence of a UTI was found. And is unable to relay a good history, but is reporting some pain her lumbar and thoracic spine. Dates that she may have fallen. She is aphonic and grossly osteopenic. No signs of trauma on the head. Hospital Course Hospital Course: Patient is a 75-year-old white female, known to me from the office. She has underlying dementia which is following a progressive course. She has marked decompensations correlate with urinary tract infections. Received an urgent call from the family yesterday being marked mental status alterations. She was extremely confused, wandered quite a distance from the house and was frankly lost. She presented to the emergency room, and evidence of a UTI was found. And is unable to relay a good history, but is reporting some pain her lumbar and thoracic spine. Dates that she may have fallen. She is aphonic and grossly osteopenic. No signs of trauma on the head. 03/19/[address]: IMPRESSION: Right maxillary sinusitis, without acute intracranial pathology. Electronically signed by Marcio Savage MD 03/19/21 L-Spine XR: FINDINGS: Bones/joints: Osteopenia and degenerative change. Mild vertebral endplate depression, without rigoberto compression fracture. Grade 1 anterolisthesis of L4 on L5 with prominent facet arthropathy. Gastrointestinal tract: Prominent stool. Vasculature: Vascular calcification. IMPRESSION: 1. Osteopenia and degenerative change. 2. Grade 1 anterolisthesis of L4 on L5 with prominent facet arthropathy. Electronically signed by Marcio Savage MD 03/19/21 T-Spine: FINDINGS: Bones/joints: Osteopenia, degenerative change, and exaggerated thoracic kyphosis. Anatomic alignment. Soft tissues: Calcified lymph nodes in association with chronic granulomatous disease. IMPRESSION: Osteopenia, degenerative change, and exaggerated thoracic kyphosis. Electronically signed by Marcio Savage MD Awaiting urine culture and has received Ceftriaxone IV during stay, will follow urine cultures after discharge. 35-year-old female patient sitting up in chair pleasantly confused, respirations easy/even, she denies any respiratory distress chest pain or other needs during the night. Discussed discharge with her today to [facility], she is agreeable to this PLAN: 1. We will discharge to [facility] today 2. Macrobid twice daily x10 days 3. Follow-up with PCP in 1 week Objective Vital signs: Temp Pulse Resp BP Pulse Ox 97.6 F 50 L 18 153/67 H 99 03/22/21 08:00 03/22/21 08:00 03/22/21 08:00 03/22/21 08:00 03/22/21 08:00 no acute distress - *Routine HEENT Exam Head: Present: normocephalic Eye: Present: EOMI ENT: Present: mucous membranes moist - *Routine Neck Exam Present: supple, trachea midline. Absent: tracheal deviation - *Routine Respiratory Exam Present: CTA bilaterally. Absent: accessory muscle use - *Routine Cardiovascular Exam Present: RRR - *Routine Abdominal Exam Present: soft, normoactive bowel sounds. Absent: tenderness, firm - *Routine Extremities Exam Present: full ROM, pulses intact. Absent: cyanosis, clubbing, edema, calf tenderness - *Routine Skin Exam Present: intact, dry, warm. Absent: cyanosis, erythema - *Routine Neurological Exam Present: alert. Absent: motor deficit, pronator drift - Routine Psychiatric Exam Present: normal affec
[2021-03-22 13:19] LABS: Coronavirus 19, PCR Not Detected (NotDetected); Influenza A, PCR Not Detected (NotDetected); Influenza B, PCR Not Detected (NotDetected)
== END 2021-03-22 14:55 ==
LOC: ER 17:15 → 2ND 18:28
PROVIDERS: Nurse Practitioner Family; Admitting Provider Family Medicine; Emergency Provider Family Medicine; PCP Family Medicine; Visit Provider Family Medicine
DX: Z91.83 Wandering in diseases classified elsewhere (principal); R41.82 Altered mental status, unspecified; Z20.822 Contact with and (suspected) exposure to COVID-19; Z91.81 History of falling; I10 Essential (primary) hypertension; F03.91 Unspecified dementia, unspecified severity, with behavioral disturbance; E78.5 Hyperlipidemia, unspecified; Z79.899 Other long term (current) drug therapy; Z88.2 Allergy status to sulfonamides; Z91.041 Radiographic dye allergy status; M40.209 Unspecified kyphosis, site unspecified; N39.0 Urinary tract infection, site not specified; M81.0 Age-related osteoporosis without current pathological fracture
CPT/HCPCS: G0378; 36415; 70450; 72070; 72100; 80048; 80053; 81001; 82140; 84443; 85025; 87086; 99284; U0003

== ENCOUNTER → 2021-06-02 10:46 | Outpatient (CLI) | payer MEDICARE, BC, SELFPAY ==
--- NOTE | 2021-06-02 10:49 | CT_ITS ---
PROCEDURE: CT HEAD/BRAIN WO CON CLINICAL INDICATION: TENSION HEADACHE Altered mental status COMPARISON: CT CT HEAD/BRAIN WO CON from 03/19/2021 TECHNIQUE: Axial images obtained. All CT scans at the facility use one or more dose reduction, viz: automated exposure control, ma/kV adjustment per patient size (including targeted exams where dose is matched to indication, i.e. head), or iterative reconstruction technique. FINDINGS: No midline shift, mass effect, intracranial hemorrhage, hydrocephalus, or extra-axial fluid collection is evident. There is minimal calcification in the right basal ganglia the calvarium has an unremarkable appearance. No mastoid effusion. There is an air-fluid level in the left maxillary sinus with mucosal thickening of the maxillary sinuses anteriorly and in the left ethmoid sinus. IMPRESSION: No acute intracranial findings. Sinusitis Dictated by: Adan Fajardo MD 06/02/2021 15:04 Adan Fajardo MD in OV 06/02/2021 15:04
== END ==
PROVIDERS: PCP Family Medicine; Visit Provider Psychiatry & Neurology Neurology
DX: G44.209 Tension-type headache, unspecified, not intractable (principal)
CPT/HCPCS: 70450